=== PATIENT | female | born 1960 | race Caucasian/White ===

== ENCOUNTER 2024-06-26 12:56 | Outpatient (AMB) | payer BC, SELFPAY ==
--- NOTE | 2024-06-26 13:04 | A.OFFVIS_ITS ---
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 Accompanied by: Self / Same As Patient Allergies ketorolac [From Toradol] Allergy (Unknown, Verified 06/26/24 13:17) Diarrhea gladiolas Allergy (Unknown, Uncoded 06/26/24 13:17) Runny Nose novocaine Allergy (Unknown, Uncoded 06/26/24 13:17) Dizziness HPI Comments Details: Chacha is a very pleasant 64-year-old female who presents to the office today for evaluation management of her chronic lower back and neck pain Today she is requesting that we focus on her lower back as this is the most significant source of her pain currently She has been suffering with this pain for greater than 10 years, denies inciting injury, fall, trauma. She does state that at one point over 10 years ago she was at work and had sudden severe lower back pain that came out of the blue. She tried steroids, muscle relaxers and ultimately ended up with a chiropractor. With these combination she was able to get relief. Since then she has been suffering with midline lower back pain without radiation down either lower extremity. Denies numbness, weakness, burning, tingling of the lower extremity Denies red flag symptoms including new loss of bowel, bladder or saddle anesthesia She has completed physical therapy at [facility] in [place] but pain persists Goes to chiropractor once a month which gives her short-term improvement Has tried massage and trigger point injections without improvement Currently taking muscle relaxers with minimal improvement. She also takes nonsteroidal anti-inflammatory medications and Lyrica but pain persists Pain today is rated as a 7/10, constant all day and night In terms of muscle damage condition is described as throbbing, tingling, tiring, radiating, spreading, dull, sore, pulsing, aching, sharp Pain is negatively impacting patient's enjoyment of life, general activities, sleep, relationships with people Denies current use of nicotine, tobacco Endorses occasional alcohol use, a glass of wine Denies illicit substance use, endorses marijuana use for sleep Denies current use of anticoagulants. Denies implantable devices, pacemaker defibrillator [facility] Medical History (Updated 06/26/24 @ 13:58 by Tracey Cardona APRN, CHAIRMAN OF THE BOARD) Right knee pain Pain in back Pain in left ankle Lipoma of left shoulder Hypertension Chronic back pain History of anal fissures Surgical History (Updated 06/26/24 @ 13:28 by Cassandra Mcdermott) History of lumpectomy of left breast History of appendectomy H/O rectal sphincterotomy Social History (Updated 06/26/24 @ 13:28 by Cassandra Mcdermott) Alcohol intake: current Alcohol intake frequency: holidays/special occasions only Substance Use Type: Marijuana Review of Systems Const All systems reviewed & are unremarkable except as noted in HPI and below Physical Exam Vital Signs: Last Vital Signs Pulse 81 06/26/24 13:12 BP 144/94 H 06/26/24 13:12 Pulse Ox 99 06/26/24 13:12 Oxygen Delivery Method Room Air 06/26/24 13:12 BMI result Body Mass Index 22.3 General: awake, alert, oriented. Answers questions appropriately. Fully engaged in examination. Skin: warm, dry, intact HEENT: Normocephalic. Hearing intact. Cardiac: External chest normal in appearance. Respiratory: No cough, audible wheezing or stridor. Abdomen: without gross distension. MS: No obvious swelling or deformities. Able to stand on bilateral tiptoes and bilateral heels.? Able to transition from sit to stand unassisted. Ambulates with bilaterally normal heel strike and toe off Tenderness over midline lumbar vertebrae and lumbar paraspinal muscles Decreased lumbar range of motion, pain with forward flexion worse than pain with extension Bilateral lower extremity strength 5/5 SLR negative bilaterally Nontender over bilateral PSIS Neurological: Oriented to person, place, time and situation. Thought process intact. No gait abnormalities appreciated. Psychiatric: Appropriate mood and affect. Good judgment and insight. Results Reviewed Results Reviewed: 03/2024 MRI lumbar spine Assessment & Plan Assessment & Plan (1) Lumbar spondylosis: Code(s): M47.816 - Spondylosis without myelopathy or radiculopathy, lumbar region Category: Medical (2) Cervical spondylosis: Code(s): M47.812 - Spondylosis without myelopathy or radiculopathy, cervical region Category: Medical (3) Chronic neck pain: Code(s): M54.2 - Cervicalgia; G89.29 - Other chronic pain Category: Medical (4) Chronic back pain: Code(s): M54.9 - Dorsalgia, unspecified; G89.29 - Other chronic pain Category: Medical Plan Chacha is a very pleasant 64-year-old female who presented to the office today for evaluation management of her chronic neck and lower back pain. Today she requested that we focus on her lower back before addressing her neck pain History, physical exam and provocative testing consistent with lumbar spondylosis Patient has exhausted conservative therapy including PT, NSAIDs, chiropractor, acupuncture, massage and trigger point injections all without improvement of her pain Discussed options for treatment including diagnostic interventional testing, epidural steroid injections, peripheral nerve stimulation with Sprint, RFA and more permanent neuromodulation. Informational pamphlets provided. Will schedule for bilateral diagnostic fluoroscopy guided L3-L4 DR L5 medial branch blocks with local anesthetic. The patient reports positive results will plan for therapeutic injections, Sprint or RFA All questions and concerns have been answered and patient agrees with the plan. Follow up after injections and sooner if needed. Coding Level of Care Code New Pt Level 4 (87916) Complex EM visit Add On G2211 Diagnoses Lumbar spondylosis M47.816 Cervical spondylosis M47.812 Chronic neck pain M54.2; G89.29 Chronic back pain M54.9; G89.29
[2024-06-26 13:12] VITALS: BP 144/94; PULSE 81; O2SAT 99; BMI 22.3
== END 2024-06-26 13:39 | disposition home or self-care (01) ==
PROVIDERS: PCP Family Medicine; Visit Provider Registered Nurse Emergency
DX: M47.816 Spondylosis without myelopathy or radiculopathy, lumbar region (principal); M47.812 Spondylosis without myelopathy or radiculopathy, cervical region; M54.2 Cervicalgia; G89.29 Other chronic pain; M54.9 Dorsalgia, unspecified
CPT/HCPCS: 99204

== ENCOUNTER → 2024-06-26 12:56 | Outpatient (BNVA) | payer BC, SELFPAY | PROVIDERS: PCP Family Medicine; Visit Provider Registered Nurse Emergency ==

== ENCOUNTER 2024-07-22 06:13 | Outpatient (REF) | payer BC, SELFPAY | END 2024-07-22 06:14 | disposition home or self-care (01) | LOC: CF 06:13 | PROVIDERS: Visit Provider Anesthesiology | DX: M47.816 Spondylosis without myelopathy or radiculopathy, lumbar region (principal) | CPT/HCPCS: 64493; 64494; J2003; J2795; Q9967 ==

== ENCOUNTER 2024-07-22 14:48 | Outpatient (AMB) | payer BC, SELFPAY ==
--- NOTE | 2024-07-22 14:54 | MHC.OFFVIS ---
Vital Signs 07/22/24 15:23 07/22/24 15:24 Height 5 ft 5 in 5 ft 5 in Weight 134 lb 2 oz 134 lb 2 oz BMI 22.3 22.3 BP 159/101 H 138/76 Blood Pressure Location Lt brachial Lt brachial Position Sitting Supine Respiration 14 12 Pulse 60 78 Pulse Source Pulse Oximeter Pulse Oximeter Pulse Oximetry (%) 96 95 Oxygen Delivery Method Room Air Room Air Comment pre-op post-op Intake Visit Reasons: BILATERAL DIAGNOSTIC L3, L4, DRL5 MBB Allergies ketorolac [From Toradol] Allergy (Unknown, Verified 07/22/24 15:33) Diarrhea gladiolas Allergy (Unknown, Uncoded 06/26/24 13:17) Runny Nose novocaine Allergy (Unknown, Uncoded 06/26/24 13:17) Dizziness [facility] Medical History (Updated 06/26/24 @ 13:58 by Tracey Cardona APRN, PULP SCREEN OPERATOR) Right knee pain Pain in back Pain in left ankle Lipoma of left shoulder Hypertension Chronic back pain History of anal fissures Surgical History (Updated 06/26/24 @ 13:28 by Cassandra Mcdermott) History of lumpectomy of left breast History of appendectomy H/O rectal sphincterotomy Social History (Updated 06/26/24 @ 13:28 by Cassandra Mcdermott) Alcohol intake: current Alcohol intake frequency: holidays/special occasions only Substance Use Type: Marijuana Physical Exam Vital Signs: Last Vital Signs Pulse 78 07/22/24 15:24 Resp 12 07/22/24 15:24 BP 138/76 07/22/24 15:24 Pulse Ox 95 07/22/24 15:24 Oxygen Delivery Method Room Air 07/22/24 15:24 BMI result Body Mass Index 22.3 Assessment & Plan Assessment & Plan (1) Lumbar spondylosis: Code(s): M47.816 - Spondylosis without myelopathy or radiculopathy, lumbar region Category: Medical Plan Attempt at diagnostic L3-L4 L5 medial branch block bilateral. Informed consent was thoroughly explained to the patient before the procedure.? The patient came to the operating room.? She was positioned prone on operating table with a pillow under his abdomen.? Time-out was performed delineating correct site and side of the procedure, nature of the injection, name and date of of the patient. The lower back of the patient was prepped with ChloraPrep and draped with sterile utility towels.? C-arm was brought over the operating field and pictures of the upper pelvis and L5 and L4 vertebra were delineated on the screen. The point of interest were delineated as connection of superior articular process of S1 bilaterally with sacral ala as well as connection of the superior articular process of L4 and L5 with corresponding transverse processes. We were able to complete dorsal ramus L5 bilaterally and L4 on the left when patient stopped to respond to our conversation. The bed was brought to the OR and patient was immediately was transfered on the bed , her skin appeared to be clammy, and she was unresponsive but had respiration and pulse. The patient was stimulated and she regained her consciousness. She was transferred to the recovery room where she was observed for 15 minutes. Her vitals were stable. After that she was discharged home. Orders: Orders FL guidance in treatment room Today M47.816 - Spondylosis without myelopathy or radiculopathy, lumbar region Coding Level of Care Code Procedure Only Diagnoses Lumbar spondylosis M47.816
[2024-07-22 15:23] VITALS: BP 159/101; PULSE 60; RESP 14; O2SAT 96; BMI 22.3
[2024-07-22 15:24] VITALS: BP 138/76; PULSE 78; RESP 12; O2SAT 95; BMI 22.3
== END 2024-07-22 15:56 | disposition home or self-care (01) ==
LOC: HO.PMCPRC 14:48
PROVIDERS: PCP Family Medicine; Visit Provider Anesthesiology
DX: M47.816 Spondylosis without myelopathy or radiculopathy, lumbar region (principal)
CPT/HCPCS: 64493; 64494

== ENCOUNTER 2024-07-25 13:13 | Outpatient (AMB) | payer BC, SELFPAY ==
[2024-07-25 13:25] VITALS: BP 172/77; PULSE 69; O2SAT 97; BMI 23.8
--- NOTE | 2024-07-25 13:25 | MHC.OFFVIS ---
Vital Signs 07/25/24 13:25 Height 5 ft 5 in Weight 143 lb BMI 23.8 BP 172/77 H Blood Pressure Location Rt brachial Position Sitting Pulse 69 Pulse Source Pulse Oximeter Pulse Oximetry (%) 97 Oxygen Delivery Method Room Air Intake Visit Reasons: BILATERAL DIAGNOSTIC L3, L4, DRL5 MBB Allergies ketorolac [From Toradol] Allergy (Unknown, Verified 07/25/24 13:25) Diarrhea gladiolas Allergy (Unknown, Uncoded 07/25/24 13:25) Runny Nose novocaine Allergy (Unknown, Uncoded 07/25/24 13:25) Dizziness Medication List - Last Reconciled 07/25/24 by Milady Parsons alendronate 70 mg PO QWEEK cyclobenzaprine 10 mg PO BEDTIME duloxetine 60 mg PO DAILY estradiol (Lyllana) 1 patch transdermal 2XW naproxen 500 mg PO BID pregabalin 150 mg PO BID HPI Comments Details: Chacha presents back to the office today for follow-up, 3 days status post bilateral L3-L4 DR L5 medial branch blocks with local anesthetic Procedure was aborted after patient became unresponsive. Appears to have had a vasovagal response. Because of this only part of the procedure was performed in patient is not able to detail an appropriate response to the diagnostic injections. Intake: Chacha is a very pleasant 64-year-old female who presents to the office today for evaluation management of her chronic lower back and neck pain Today she is requesting that we focus on her lower back as this is the most significant source of her pain currently She has been suffering with this pain for greater than 10 years, denies inciting injury, fall, trauma. She does state that at one point over 10 years ago she was at work and had sudden severe lower back pain that came out of the blue. She tried steroids, muscle relaxers and ultimately ended up with a chiropractor. With these combination she was able to get relief. Since then she has been suffering with midline lower back pain without radiation down either lower extremity. Denies numbness, weakness, burning, tingling of the lower extremity Denies red flag symptoms including new loss of bowel, bladder or saddle anesthesia She has completed physical therapy at [facility] in [place] but pain persists Goes to chiropractor once a month which gives her short-term improvement Has tried massage and trigger point injections without improvement Currently taking muscle relaxers with minimal improvement. She also takes nonsteroidal anti-inflammatory medications and Lyrica but pain persists Pain today is rated as a 7/10, constant all day and night In terms of muscle damage condition is described as throbbing, tingling, tiring, radiating, spreading, dull, sore, pulsing, aching, sharp Pain is negatively impacting patient's enjoyment of life, general activities, sleep, relationships with people Denies current use of nicotine, tobacco Endorses occasional alcohol use, a glass of wine Denies illicit substance use, endorses marijuana use for sleep Denies current use of anticoagulants. Denies implantable devices, pacemaker defibrillator FOR[facility]LY [facility] Medical History (Updated 06/26/24 @ 13:58 by Tracey Cardona APRN, [employer] SALES REPRESENTATIVE) Right knee pain Pain in back Pain in left ankle Lipoma of left shoulder Hypertension Chronic back pain History of anal fissures Surgical History (Updated 06/26/24 @ 13:28 by Cassandra Mcdermott) History of lumpectomy of left breast History of appendectomy H/O rectal sphincterotomy Social History (Updated 06/26/24 @ 13:28 by Cassandra Mcdermott) Alcohol intake: current Alcohol intake frequency: holidays/special occasions only Substance Use Type: Marijuana Review of Systems Const All systems reviewed & are unremarkable except as noted in HPI and below Physical Exam Vital Signs: Last Vital Signs Pulse 69 07/25/24 13:25 BP 172/77 H 07/25/24 13:25 Pulse Ox 97 07/25/24 13:25 Oxygen Delivery Method Room Air 07/25/24 13:25 BMI result Body Mass Index 23.8 General: awake, alert, oriented. Answers questions appropriately. Fully engaged in examination. Skin: warm, dry, intact HEENT: Normocephalic. Hearing intact. Cardiac: External chest normal in appearance. Respiratory: No cough, audible wheezing or stridor. Abdomen: without gross distension. MS: No obvious swelling or deformities. Able to transition from sit to stand unassisted. Ambulates with bilaterally normal heel strike and toe off Tenderness over midline lumbar vertebrae and lumbar paraspinal muscles SLR negative bilaterally Facet loading positive bilaterally Neurological: Oriented to person, place, time and situation. Thought process intact. No gait abnormalities appreciated. Psychiatric: Appropriate mood and affect. Good judgment and insight. Results Reviewed Results Reviewed: 03/2024 MRI lumbar spine Assessment & Plan Assessment & Plan (1) Lumbar spondylosis: Code(s): M47.816 - Spondylosis without myelopathy or radiculopathy, lumbar region Category: Medical (2) Cervical spondylosis: Code(s): M47.812 - Spondylosis without myelopathy or radiculopathy, cervical region Category: Medical (3) Chronic neck pain: Code(s): M54.2 - Cervicalgia; G89.29 - Other chronic pain Category: Medical (4) Chronic back pain: Code(s): M54.9 - Dorsalgia, unspecified; G89.29 - Other chronic pain Category: Medical Plan Chacha presented back to the office today for follow-up, 3 days status post attempt at bilateral L3-L4 DR L5 medial branch blocks. Patient did not tolerate the procedure with local anesthetic, it was therefore aborted mid procedure. Plan to repeat procedure with sedation. She has exhausted conservative therapy including PT, NSAIDs, chiropractor, acupuncture, massage and trigger point injections all without improvement of her pain Will schedule for bilateral diagnostic fluoroscopy guided L3-L4 DR L5 medial branch blocks with sedation. All questions and concerns have been answered and patient agrees with the plan. Follow up after injections and sooner if needed. Coding Level of Care Code Est Pt Level 3 (86911) Complex EM visit Add On G2211 Diagnoses Lumbar spondylosis M47.816 Cervical spondylosis M47.812 Chronic neck pain M54.2; G89.29 Chronic back pain M54.9; G89.29
== END 2024-07-25 13:30 | disposition home or self-care (01) ==
PROVIDERS: PCP Family Medicine; Visit Provider Registered Nurse Emergency
DX: M47.816 Spondylosis without myelopathy or radiculopathy, lumbar region (principal); M47.812 Spondylosis without myelopathy or radiculopathy, cervical region; M54.2 Cervicalgia; G89.29 Other chronic pain; M54.9 Dorsalgia, unspecified
CPT/HCPCS: 99213

== ENCOUNTER → 2024-07-25 13:13 | Outpatient (BNVA) | payer BC, SELFPAY | PROVIDERS: PCP Family Medicine; Visit Provider Registered Nurse Emergency ==